=== PATIENT | female | born 1990 | race Caucasian/White ===

== ENCOUNTER 2019-05-06 16:11 | Emergency (ER) | payer OTHER, MEDICAID ==
[~2019-05-06] VITALS: Ht 167.6 cm; Wt 50.0 kg
[2019-05-06 16:53] VITALS: BP 111/72
[2019-05-06] MEDS ORDERED: HYDROcodone/APAP 5/325 TABLET ONE (17:22)
[2019-05-06] MEDS ORDERED: HYDROcodone/APAP 5/325 TABLET PO ONE (17:30)
--- NOTE | 2019-05-06 18:34 | NUR ---
MEDS PER MAY. PLAN FOR CT. XR NEG.
== END 2019-05-06 19:35 | disposition home or self-care (01) ==
LOC: ED 19:30
DX: S30.0XXA Contusion of lower back and pelvis, initial encounter (principal); F17.200 Nicotine dependence, unspecified, uncomplicated; W19.XXXA Unspecified fall, initial encounter; Y93.89 Activity, other specified; Y92.030 Kitchen in apartment as the place of occurrence of the external cause; Y99.8 Other external cause status
CPT/HCPCS: 72110; 72190; 72192; 99284